=== PATIENT | female | born 1995 | race Caucasian/White ===

== ENCOUNTER 2021-05-06 12:36 | Outpatient (CLI) | payer OTHER ==
[2021-05-06 13:26] LABS: HEMOGLOBIN 9.9 gm/dl (12.3-15.3); RED BLOOD COUNT 3.47 M/UL (4.00-5.10); WHITE BLOOD COUNT 13.3 K/UL (4.5-11.0)
[2021-05-06 13:50] LABS: BUN/CREATININE RATIO 12 (0-10)
== END 2021-05-06 14:28 | disposition other institution (70) ==
LOC: GENOP 12:36
PROVIDERS: Obstetrics & Gynecology
DX: O42.912 Preterm premature rupture of membranes, unspecified as to length of time between rupture and onset of labor, second trimester (principal); O40.2XX0 Polyhydramnios, second trimester, not applicable or unspecified; O45.92 Premature separation of placenta, unspecified, second trimester; O99.332 Smoking (tobacco) complicating pregnancy, second trimester; F17.210 Nicotine dependence, cigarettes, uncomplicated; O99.322 Drug use complicating pregnancy, second trimester; F15.90 Other stimulant use, unspecified, uncomplicated; Z3A.27 27 weeks gestation of pregnancy
CPT/HCPCS: 36415; 51702; 76815; 80053; 80307; 81001; 85025; 85384; 86850; 86900; 86901; 96360; 96365; 96367; 96372; J0702; J3105; J3475; J7120